=== PATIENT | female | born 1980 | race Two or more races ===

== ENCOUNTER 2019-07-17 15:58 | Outpatient (CLI) | payer OTHER | END 2019-07-17 16:09 | disposition home or self-care (01) | LOC: EKG 15:58 | DX: D10.9 Benign neoplasm of pharynx, unspecified (principal); Z01.810 Encounter for preprocedural cardiovascular examination ==

== ENCOUNTER 2019-07-28 15:15 | Inpatient (IN) | payer OTHER ==
[~2019-07-28] VITALS: Ht 167.6 cm; Wt 59.0 kg
[2019-07-29] MEDS ORDERED: OMEPRAZOLE10 MG (08:44)
[2019-07-29] MEDS ORDERED: VITAMIN E400 UNI6 (08:44)
[2019-08-03] MEDS ORDERED: NABUMETONE500 MG PO (14:52)
[2019-08-03] MEDS ORDERED: OXYC1TAB9 PO (14:53)
== END 2019-08-03 15:43 | disposition home or self-care (01) | DRG 743 ==
LOC: O/R 15:15 → SURH 08-01 07:00 → OB/GYN 08-01 13:42 → SURH 08-01 15:15 → OB/GYN 08-03 15:43
PROVIDERS: ADMIT Obstetrics & Gynecology
PROC: 0UT70ZZ Resection of Bilateral Fallopian Tubes, Open Approach (ICD-10-PCS; 2019-08-01)
PROC: 0UT90ZZ Resection of Uterus, Open Approach (ICD-10-PCS; principal; 2019-08-01 07:00)
DX: D25.1 Intramural leiomyoma of uterus (principal); N72 Inflammatory disease of cervix uteri